=== PATIENT | male | born 1985 | race Two or more races ===

== ENCOUNTER 2022-06-04 18:00 | Emergency (ER) | payer OTHER ==
[2022-06-04 18:32] VITALS: BP 128/75; PULSE 98; RESP 18; TEMP 98.7; BMI 29.0
[2022-06-04] MEDS ORDERED: MAG HYDROX/AL HYDROX/SIMETH 30 ML UNIT-DOSE CUP PO ONE (19:36)
[2022-06-04] MEDS ORDERED: ACETAMINOPHEN 1000 MG/100 ML BAG IVPB ONE (19:37)
[2022-06-04] MEDS ORDERED: FAMOTIDINE 20 MG/50 ML IVPB 20 MG/50 ML MG IVPB ONE ×2 (19:37→19:55)
[2022-06-04] MEDS ORDERED: PANTOPRAZOLE SODIUM 40 MG VIAL IVPUSH ONE (19:37)
[2022-06-04] MEDS ORDERED: SODIUM CHLORIDE 0.9% 500 ML INFUS.BAG IV ONE (19:37)
[2022-06-04] MEDS ORDERED: ACETAMINOPHEN INJECTION 100 ML IVPB ONE (19:55)
[2022-06-04] MEDS ORDERED: PANTOPRAZOLE SODIUM 40 MG VIAL ONE (19:55)
[2022-06-04] MEDS ORDERED: MAG HYDROX/AL HYDROX/SIMETH 30 ML UNIT-DOSE CUP ONE (19:55)
== END 2022-06-04 22:30 | disposition home or self-care (01) ==
LOC: JER 18:00
PROC: 3E033GC Introduction of Other Therapeutic Substance into Peripheral Vein, Percutaneous Approach (ICD-10-PCS; principal; 2022-06-04)
DX: K29.00 Acute gastritis without bleeding (principal)
CPT/HCPCS: 99284-25

== ENCOUNTER 2022-06-08 11:58 | Inpatient (IN) | payer OTHER ==
[2022-06-08] MEDS ORDERED: ACETAMINOPHEN 1000 MG/100 ML BAG IVPB ONE (13:50)
[2022-06-08] MEDS ORDERED: FAMOTIDINE 20 MG/50 ML IVPB 20 MG/50 ML MG IVPB ONE ×2 (13:50→14:57)
[2022-06-08] MEDS ORDERED: SODIUM CHLORIDE 0.9% 500 ML INFUS.BAG IV ONE (13:50)
[2022-06-08] MEDS ORDERED: MAG HYDROX/AL HYDROX/SIMETH 30 ML UNIT-DOSE CUP PO ONE (13:50)
[2022-06-08] MEDS ORDERED: MAG HYDROX/AL HYDROX/SIMETH 30 ML UNIT-DOSE CUP ONE ×2 (14:57→14:58)
[2022-06-08] MEDS ORDERED: ACETAMINOPHEN INJECTION 100 ML IVPB ONE (14:57)
[2022-06-08 15:28] LABS: BASO % 0.3 % (0-2.0); EOS % 0.2 % (0-4.5); HEMATOCRIT 39.2 % (35.4-49); HEMOGLOBIN 13.4 GM/dL (11.7-16.9); LYMPH % 8.1 % (8-40); MCHC 34.2 g/dl (32.0-35.9); MEAN CELL VOLUME 90.7 fl (80-96); MEAN PLT VOLUME 6.7 fl (7.5-11.1); MONO % 15.8 % (3.8-10.2); NEUT % 75.6 % (42.8-82.8); PLATELET COUNT 451 10^3/uL (134-434); RBC 4.32 M/mm3 (4.00-5.60); RDW 14.1 % (11.9-15.9); WHITE BLOOD COUNT 18.8 K/mm3 (4.0-10.0)
[2022-06-08 15:51] LABS: CALCIUM 9.1 mg/dL (8.5-10.1)
[2022-06-08 15:52] LABS: ALBUMIN 3.4 g/dl (3.4-5.0); BLOOD UREA NITROGEN 14.9 mg/dL (7-18)
[2022-06-08 15:55] LABS: CREATININE 0.7 mg/dL (0.55-1.3)
[2022-06-08 15:56] LABS: BILIRUBIN,TOTAL 0.8 mg/dL (0.2-1); TOT PROT 7.9 g/dl (6.4-8.2)
[2022-06-08] MEDS ORDERED: morphine CARPU-JECT 4 MG/1 ML DISP.SYRIN IVPUSH ONE (18:33)
[2022-06-08] MEDS ORDERED: PIPERACILLIN/TAZOB 3.375 GM 3.375 GM in DEXTROSE 5%-WATER - 50 ML IVPB ONE (19:12)
[2022-06-08] MEDS ORDERED: morphine SULFATE 4 MG/ML VIAL ONE (19:47)
[2022-06-08 21:25] LABS: URINE APPEARANCE CLEAR; URINE BILIRUBIN NEGATIVE (NEGATIVE); URINE COLOR YELLOW; URINE GLUCOSE (UA) NEGATIVE (NEGATIVE); URINE KETONE 1+ (NEGATIVE); URINE LEUK ESTERASE NEGATIVE (NEGATIVE); URINE NITRITE NEGATIVE (NEGATIVE); URINE PROTEIN NEGATIVE (NEGATIVE)
[2022-06-08] MEDS ORDERED: PIPERACILLIN/TAZOB 3.375 GM 3.375 GM/50 ML BAG IVPB ONE (21:28)
[2022-06-08] MEDS ORDERED: HYDROmorphone HCl 2 MG/ML VIAL IVPUSH STA (23:26)
[2022-06-08] MEDS ORDERED: HYDROmorphone HCl 2 MG/ML VIAL ONE (23:38)
[2022-06-09] MEDS ORDERED: LORazepam 1 MG TABLET PO PRN (00:24)
[2022-06-09] MEDS: SODIUM CHLORIDE 1,000 ML IV SCH ×2 (01:04→14:44)
[2022-06-09 02:17] VITALS: BMI 30.9
[2022-06-09] MEDS ORDERED: PIPERACILLIN/TAZOB 3.375 GM 3.375 GM in DEXTROSE 5%-WATER - 50 ML IVPB SCH (05:00)
[2022-06-09] MEDS: oxyCODONE HCL 5 MG TABLET PO PRN ×3 (05:40→20:48)
[2022-06-09] MEDS: PIPERACILLIN/TAZOB 3.375 GM 3.375 GM in DEXTROSE 5%-WATER - 50 ML IVPB SCH ×3 (06:26→18:32)
[2022-06-09] MEDS ORDERED: ONDANSETRON 4 MG/2 ML VIAL IM PRN (06:42)
[2022-06-09] MEDS: NICOTINE 7 MG/24 HOURS TOPICAL PATCH TD SCH (10:33)
[2022-06-09] MEDS: ENOXAPARIN NA (PORCINE) 40 MG/0.4 ML DISP.SYRIN SQ SCH (10:34)
[2022-06-09] MEDS: THIAMINE HCL 100 MG TABLET (FP) PO SCH (10:35)
[2022-06-09] MEDS: FOLIC ACID 1 MG TABLET (FP) PO SCH (10:35)
[2022-06-09 11:00] LABS: BASO % 0.2 % (0-2.0); EOS % 0.2 % (0-4.5); HEMOGLOBIN 12.8 GM/dL (11.7-16.9); LYMPH % 9.5 % (8-40); MCH 31.3 pg (25.7-33.7); MCHC 34.5 g/dl (32.0-35.9); MEAN CELL VOLUME 90.8 fl (80-96); MEAN PLT VOLUME 6.7 fl (7.5-11.1); MONO % 15.3 % (3.8-10.2); NEUT % 74.8 % (42.8-82.8); PLATELET COUNT 460 10^3/uL (134-434); RBC 4.08 M/mm3 (4.00-5.60); RDW 14.6 % (11.9-15.9)
[2022-06-09 11:17] LABS: BLOOD UREA NITROGEN 10.1 mg/dL (7-18); CALCIUM 8.6 mg/dL (8.5-10.1); MAGNESIUM 2.5 mg/dL (1.8-2.4)
[2022-06-09 11:21] LABS: CREATININE 0.5 mg/dL (0.55-1.3)
[2022-06-09 11:22] LABS: BILIRUBIN,TOTAL 0.9 mg/dL (0.2-1); TOT PROT 6.8 g/dl (6.4-8.2)
[2022-06-10] MEDS: SODIUM CHLORIDE 1,000 ML IV SCH (00:15)
[2022-06-10] MEDS: PIPERACILLIN/TAZOB 3.375 GM 3.375 GM in DEXTROSE 5%-WATER - 50 ML IVPB SCH ×3 (01:32→18:02)
[2022-06-10] MEDS: THIAMINE HCL 100 MG TABLET (FP) PO SCH (09:36)
[2022-06-10] MEDS: oxyCODONE HCL 5 MG TABLET PO PRN ×2 (09:37→17:58)
[2022-06-10] MEDS: FOLIC ACID 1 MG TABLET (FP) PO SCH (09:38)
[2022-06-10] MEDS: ENOXAPARIN NA (PORCINE) 40 MG/0.4 ML DISP.SYRIN SQ SCH (09:38)
[2022-06-10] MEDS: NICOTINE 7 MG/24 HOURS TOPICAL PATCH TD SCH (09:38)
[2022-06-10 18:36] VITALS: RESP 18
[2022-06-10 20:22] LABS: BASO % 0.2 % (0-2.0); EOS % 0.7 % (0-4.5); HEMATOCRIT 36.4 % (35.4-49); HEMOGLOBIN 12.7 GM/dL (11.7-16.9); LYMPH % 10.9 % (8-40); MCH 31.5 pg (25.7-33.7); MCHC 34.9 g/dl (32.0-35.9); MEAN CELL VOLUME 90.3 fl (80-96); MEAN PLT VOLUME 6.5 fl (7.5-11.1); MONO % 13.1 % (3.8-10.2); NEUT % 75.1 % (42.8-82.8); PLATELET COUNT 471 10^3/uL (134-434); RBC 4.03 M/mm3 (4.00-5.60); RDW 14.4 % (11.9-15.9); WHITE BLOOD COUNT 13.7 K/mm3 (4.0-10.0)
[2022-06-10 20:40] LABS: ALBUMIN 2.9 g/dl (3.4-5.0); BLOOD UREA NITROGEN 11.8 mg/dL (7-18); CALCIUM 8.3 mg/dL (8.5-10.1); MAGNESIUM 2.4 mg/dL (1.8-2.4)
[2022-06-10 20:43] LABS: PHOSPHOROUS 3.9 mg/dL (2.5-4.9)
[2022-06-10 20:44] LABS: CREATININE 0.7 mg/dL (0.55-1.3)
[2022-06-10 20:45] LABS: BILIRUBIN,TOTAL 0.4 mg/dL (0.2-1); TOT PROT 6.8 g/dl (6.4-8.2)
[2022-06-10] MEDS ORDERED: SODIUM CHLORIDE 1,000 ML IV SCH (21:15)
[2022-06-11] MEDS ORDERED: LORazepam 0.5 MG TABLET PO PRN
[2022-06-11] MEDS: PIPERACILLIN/TAZOB 3.375 GM 3.375 GM in DEXTROSE 5%-WATER - 50 ML IVPB SCH ×3 (01:04→18:35)
[2022-06-11] MEDS: NICOTINE 7 MG/24 HOURS TOPICAL PATCH TD SCH ×2 (09:37→09:47)
[2022-06-11] MEDS: THIAMINE HCL 100 MG TABLET (FP) PO SCH (09:38)
[2022-06-11] MEDS: FOLIC ACID 1 MG TABLET (FP) PO SCH (09:38)
[2022-06-11] MEDS: ENOXAPARIN NA (PORCINE) 40 MG/0.4 ML DISP.SYRIN SQ SCH (09:38)
[2022-06-11 12:26] LABS: BASO % 0.4 % (0-2.0); EOS % 0.5 % (0-4.5); HEMATOCRIT 37.6 % (35.4-49); HEMOGLOBIN 12.6 GM/dL (11.7-16.9); LYMPH % 12.9 % (8-40); MCH 30.4 pg (25.7-33.7); MCHC 33.7 g/dl (32.0-35.9); MEAN CELL VOLUME 90.5 fl (80-96); MONO % 13.1 % (3.8-10.2); NEUT % 73.1 % (42.8-82.8); PLATELET COUNT 483 10^3/uL (134-434); RBC 4.15 M/mm3 (4.00-5.60); RDW 14.1 % (11.9-15.9); WHITE BLOOD COUNT 13.1 K/mm3 (4.0-10.0)
[2022-06-11 12:58] LABS: ALBUMIN 2.7 g/dl (3.4-5.0); CALCIUM 8.2 mg/dL (8.5-10.1)
[2022-06-11 12:59] LABS: BLOOD UREA NITROGEN 9.4 mg/dL (7-18); MAGNESIUM 2.4 mg/dL (1.8-2.4)
[2022-06-11 13:01] LABS: CREATININE 0.6 mg/dL (0.55-1.3); PHOSPHOROUS 3.7 mg/dL (2.5-4.9)
[2022-06-11 13:02] LABS: TOT PROT 6.4 g/dl (6.4-8.2)
[2022-06-11 13:03] LABS: BILIRUBIN,TOTAL 0.3 mg/dL (0.2-1)
[2022-06-11] MEDS: oxyCODONE HCL 5 MG TABLET PO PRN (14:03)
[2022-06-12] MEDS: PIPERACILLIN/TAZOB 3.375 GM 3.375 GM in DEXTROSE 5%-WATER - 50 ML IVPB SCH ×3 (01:08→18:25)
[2022-06-12] MEDS: FOLIC ACID 1 MG TABLET (FP) PO SCH (09:06)
[2022-06-12] MEDS: THIAMINE HCL 100 MG TABLET (FP) PO SCH (09:06)
[2022-06-12] MEDS: oxyCODONE HCL 5 MG TABLET PO PRN (09:06)
[2022-06-12] MEDS: ENOXAPARIN NA (PORCINE) 40 MG/0.4 ML DISP.SYRIN SQ SCH (09:07)
[2022-06-12] MEDS: NICOTINE 7 MG/24 HOURS TOPICAL PATCH TD SCH (09:21)
[2022-06-12 12:45] LABS: HEMATOCRIT 39.2 % (35.4-49); HEMOGLOBIN 13.5 GM/dL (11.7-16.9); MCH 30.9 pg (25.7-33.7); MCHC 34.3 g/dl (32.0-35.9); MEAN CELL VOLUME 90.1 fl (80-96); MEAN PLT VOLUME 6.6 fl (7.5-11.1); PLATELET COUNT 561 10^3/uL (134-434); RBC 4.35 M/mm3 (4.00-5.60); RDW 14.3 % (11.9-15.9); WHITE BLOOD COUNT 12.3 K/mm3 (4.0-10.0)
[2022-06-13] MEDS: PIPERACILLIN/TAZOB 3.375 GM 3.375 GM in DEXTROSE 5%-WATER - 50 ML IVPB SCH ×2 (01:02→10:18)
[2022-06-13] MEDS: ENOXAPARIN NA (PORCINE) 40 MG/0.4 ML DISP.SYRIN SQ SCH (10:18)
[2022-06-13] MEDS: NICOTINE 7 MG/24 HOURS TOPICAL PATCH TD SCH (10:19)
[2022-06-13] MEDS: THIAMINE HCL 100 MG TABLET (FP) PO SCH (10:19)
[2022-06-13] MEDS: FOLIC ACID 1 MG TABLET (FP) PO SCH (10:19)
[2022-06-13] MEDS: oxyCODONE HCL 5 MG TABLET PO PRN (10:32)
[2022-06-13 10:35] LABS: BASO % 0.3 % (0-2.0); EOS % 0.8 % (0-4.5); HEMATOCRIT 42.8 % (35.4-49); HEMOGLOBIN 14.3 GM/dL (11.7-16.9); LYMPH % 22.9 % (8-40); MCH 30.3 pg (25.7-33.7); MCHC 33.3 g/dl (32.0-35.9); MEAN PLT VOLUME 6.9 fl (7.5-11.1); MONO % 6.5 % (3.8-10.2); NEUT % 69.5 % (42.8-82.8); PLATELET COUNT 632 10^3/uL (134-434); RBC 4.71 M/mm3 (4.00-5.60); RDW 14.7 % (11.9-15.9); WHITE BLOOD COUNT 12.2 K/mm3 (4.0-10.0)
[2022-06-13 10:36] LABS: BLOOD UREA NITROGEN 14.6 mg/dL (7-18); CALCIUM 9.2 mg/dL (8.5-10.1); MAGNESIUM 2.8 mg/dL (1.8-2.4)
[2022-06-13 10:39] LABS: CREATININE 0.7 mg/dL (0.55-1.3)
[2022-06-13 10:42] LABS: BILIRUBIN,TOTAL 0.3 mg/dL (0.2-1)
[2022-06-13 10:43] LABS: ALBUMIN 3.3 g/dl (3.4-5.0)
[2022-06-13 13:48] VITALS: BP 106/60; PULSE 74; TEMP 98.4
== END 2022-06-13 15:50 | disposition home or self-care (01) | DRG 246 ==
LOC: JER 11:58 → JERBED 18:42 → J5S 06-09 00:14
PROVIDERS: ADMIT Internal Medicine; ATTEND Nurse Practitioner Family
DX: K55.069 Acute infarction of intestine, part and extent unspecified (principal); K52.9 Noninfective gastroenteritis and colitis, unspecified; R74.01 Elevation of levels of liver transaminase levels; F17.210 Nicotine dependence, cigarettes, uncomplicated; F10.10 Alcohol abuse, uncomplicated; D72.829 Elevated white blood cell count, unspecified; R11.2 Nausea with vomiting, unspecified; R10.13 Epigastric pain
CPT/HCPCS: 36415; 74177-TC; 76705-TC; 80053; 81003; 83605; 83690; 83735; 83993; 84100; 85025; 85027; 86705; 86707; 86708; 87040; 87045; 87046; 87086; 87205; 87209; 87324; 87350; 87449; 87517; 87522; 93005; 93010; 99285-25; C9803-CS; Q9967; U0003; U0005

== ENCOUNTER 2022-06-22 10:00 | Inpatient (IN) | payer OTHER ==
[2022-06-22] MEDS ORDERED: morphine CARPU-JECT 4 MG/1 ML DISP.SYRIN IVPUSH ONE ×3 (10:53→15:10)
[2022-06-22] MEDS ORDERED: morphine SULFATE 4 MG/ML VIAL ONE ×2 (11:25→13:13)
[2022-06-22] MEDS ORDERED: SODIUM CHLORIDE 0.9% 500 ML INFUS.BAG IV ONE (11:30)
[2022-06-22 11:57] LABS: HEMATOCRIT 40.6 % (35.4-49); HEMOGLOBIN 13.5 GM/dL (11.7-16.9); MCH 29.7 pg (25.7-33.7); MCHC 33.2 g/dl (32.0-35.9); MEAN CELL VOLUME 89.5 fl (80-96); MEAN PLT VOLUME 7.1 fl (7.5-11.1); PLATELET COUNT 639 10^3/uL (134-434); RBC 4.53 M/mm3 (4.00-5.60); RDW 14.5 % (11.9-15.9); WHITE BLOOD COUNT 20.5 K/mm3 (4.0-10.0)
[2022-06-22 12:06] LABS: INR 1.43 (0.83-1.09); PROTHROMBIN TIME (PATIENT) 16.5 SEC (9.7-13.0)
[2022-06-22 12:08] LABS: ACTIVATED PTT 34.8 SECONDS (25.2-36.5)
[2022-06-22 12:25] LABS: CALCIUM 9.3 mg/dL (8.5-10.1)
[2022-06-22 12:26] LABS: ALBUMIN 3.5 g/dl (3.4-5.0); MAGNESIUM 2.3 mg/dL (1.8-2.4)
[2022-06-22 12:29] LABS: CREATININE 0.8 mg/dL (0.55-1.3)
[2022-06-22 12:30] LABS: BILIRUBIN,TOTAL 0.8 mg/dL (0.2-1); TOT PROT 7.6 g/dl (6.4-8.2)
[2022-06-22] MEDS ORDERED: PIPERACILLIN/TAZOB 4.5 GM 4.5 GM in DEXTROSE 5%-WATER 100 ML IVPB ONE (13:03)
[2022-06-22 13:18] LABS: PH,URINE 5.5 (5.0-8.0); URINE APPEARANCE CLEAR; URINE BILIRUBIN NEGATIVE (NEGATIVE); URINE COLOR YELLOW; URINE GLUCOSE (UA) NEGATIVE (NEGATIVE); URINE KETONE TRACE (NEGATIVE); URINE LEUK ESTERASE NEGATIVE (NEGATIVE); URINE NITRITE NEGATIVE (NEGATIVE); URINE PROTEIN NEGATIVE (NEGATIVE); URINE UROBILINOGEN 0.2 mg/dL (0.2-1.0)
[2022-06-22] MEDS ORDERED: PIPERACILLIN/TAZOB 4.5 GM 4.5 GM/100 ML BAG IVPB ONE (13:23)
[2022-06-22] MEDS ORDERED: ACETAMINOPHEN 1000 MG/100 ML BAG IVPB ONE (14:03)
[2022-06-22] MEDS ORDERED: ACETAMINOPHEN INJECTION 100 ML IVPB ONE ×2 (14:13→21:00)
[2022-06-22] MEDS ORDERED: ONDANSETRON 4 MG/2 ML VIAL IVPUSH PRN (16:52)
[2022-06-22] MEDS ORDERED: ACETAMINOPHEN 1000 MG/100 ML BAG IVPB PRN (16:54)
[2022-06-22] MEDS ORDERED: LACTATED RINGERS SOLUTION 1,000 ML IV SCH (17:00)
[2022-06-22] MEDS ORDERED: KETOROLAC TROMETHAMINE 15 MG/ML VIAL IVPUSH PRN (17:35)
[2022-06-22] MEDS ORDERED: PIPERACILLIN/TAZOB 3.375 GM 3.375 GM/50 ML BAG IVPB ONE (21:01)
[2022-06-22] MEDS: ACETAMINOPHEN 1000 MG/100 ML BAG IVPB PRN (21:10)
[2022-06-22] MEDS: PIPERACILLIN/TAZOB 3.375 GM 3.375 GM in DEXTROSE 5%-WATER - 50 ML IVPB SCH (21:10)
[2022-06-23] MEDS ORDERED: PIPERACILLIN/TAZOB 3.375 GM 3.375 GM/50 ML BAG IVPB ONE ×2 (03:09→09:38)
[2022-06-23] MEDS: PIPERACILLIN/TAZOB 3.375 GM 3.375 GM in DEXTROSE 5%-WATER - 50 ML IVPB SCH ×3 (03:21→21:19)
[2022-06-23 07:12] LABS: HEMATOCRIT 35.4 % (35.4-49); HEMOGLOBIN 12.1 GM/dL (11.7-16.9); MCH 30.6 pg (25.7-33.7); MCHC 34.2 g/dl (32.0-35.9); MEAN CELL VOLUME 89.6 fl (80-96); PLATELET COUNT 550 10^3/uL (134-434); RBC 3.95 M/mm3 (4.00-5.60); RDW 14.1 % (11.9-15.9); WHITE BLOOD COUNT 20.1 K/mm3 (4.0-10.0)
[2022-06-23 07:16] LABS: CHLORIDE 102 mmol/L (98-107); SODIUM 138 mmol/L (136-145)
[2022-06-23 07:20] LABS: ANION GAP 9 MMOL/L (8-16); BLOOD UREA NITROGEN 4.9 mg/dL (7-18); CALCIUM 8.8 mg/dL (8.5-10.1); CO2 26 mmol/L (21-32); GLUCOSE,RANDOM 93 mg/dL (74-106); MAGNESIUM 2.1 mg/dL (1.8-2.4)
[2022-06-23 07:23] LABS: CREATININE 0.6 mg/dL (0.55-1.3); PHOSPHOROUS 3.9 mg/dL (2.5-4.9)
[2022-06-23] MEDS ORDERED: morphine SULFATE 4 MG/ML VIAL IVPUSH PRN ×2 (10:24→17:23)
[2022-06-23] MEDS ORDERED: ACETAMINOPHEN INJECTION 100 ML IVPB ONE (10:28)
[2022-06-23] MEDS ORDERED: morphine SULFATE 4 MG/ML VIAL ONE ×2 (10:37→12:28)
[2022-06-23] MEDS: ACETAMINOPHEN 1000 MG/100 ML BAG IVPB PRN (10:42)
[2022-06-23] MEDS ORDERED: MIDAZOLAM HCL 2 MG/2 ML SINGLE DOSE VIAL ONE (13:04)
[2022-06-23] MEDS ORDERED: PROPOFOL 20 ML ONE (13:04)
[2022-06-23] MEDS ORDERED: ROCURONIUM BROMIDE 50 MG/5 ML SYRINGE ONE ×2 (13:14→14:28)
[2022-06-23] MEDS ORDERED: LIDOCAINE HCL 2% 100 MG/5 ML DISP.SYRIN ONE (13:16)
[2022-06-23] MEDS ORDERED: DEXAMETHASONE SOD PHOSPHATE 4 MG/1 ML VIAL ONE (13:18)
[2022-06-23] MEDS ORDERED: BUPIVACAINE HCL/PF 0.25% (2.5MG/ML) 10 ML VIAL ONE (14:04)
[2022-06-23] MEDS ORDERED: PIPERACILLIN/TAZOBACTAM 3.375 GM VIAL IVPB ONE (14:16)
[2022-06-23] MEDS ORDERED: HYDROmorphone HCl 2 MG/ML VIAL ONE (14:55)
[2022-06-23] MEDS ORDERED: ONDANSETRON 4 MG/2 ML VIAL ONE (15:08)
[2022-06-23] MEDS ORDERED: NEOSTIGMINE METHYLSULFATE 0.5 MG/ML - 10 ML MDV ONE (15:47)
[2022-06-23] MEDS ORDERED: KETOROLAC TROMETHAMINE 30 MG/1 ML VIAL ONE (16:05)
[2022-06-23] MEDS ORDERED: ACETAMINOPHEN 1000 MG/100 ML BAG IVPB SCH (16:45)
[2022-06-23] MEDS ORDERED: ONDANSETRON 4 MG/2 ML VIAL IVPUSH PRN ×2 (16:52→17:23)
[2022-06-23] MEDS ORDERED: PROMETHAZINE HCL 25 MG/1 ML VIAL IVPB PRN (16:53)
[2022-06-23] MEDS ORDERED: HYDROmorphone *PCA* 10MG/50ML DISP.SYRIN ONE (17:17)
[2022-06-23] MEDS ORDERED: KETOROLAC TROMETHAMINE 15 MG/ML VIAL IVPUSH PRN (17:23)
[2022-06-23] MEDS ORDERED: LACTATED RINGERS SOLUTION 1,000 ML IV SCH (17:23)
[2022-06-23] MEDS: HYDROmorphone *PCA* 10MG/50ML DISP.SYRIN PCA SCH (18:15)
[2022-06-23] MEDS: LACTATED RINGERS SOLUTION 1,000 ML IV SCH (20:40)
[2022-06-23] MEDS ORDERED: PIPERACILLIN/TAZOB 3.375 GM 3.375 GM in DEXTROSE 5%-WATER - 50 ML IVPB SCH (21:00)
[2022-06-23] MEDS: ACETAMINOPHEN 1000 MG/100 ML BAG IVPB SCH (21:24)
[2022-06-24] MEDS: ACETAMINOPHEN 1000 MG/100 ML BAG IVPB SCH ×4 (02:17→18:42)
[2022-06-24] MEDS: LACTATED RINGERS SOLUTION 1,000 ML IV SCH ×4 (03:18→18:06)
[2022-06-24 07:00] LABS: HEMOGLOBIN 11.6 GM/dL (11.7-16.9); MCH 29.9 pg (25.7-33.7); MCHC 33.1 g/dl (32.0-35.9); MEAN CELL VOLUME 90.5 fl (80-96); MEAN PLT VOLUME 7.5 fl (7.5-11.1); PLATELET COUNT 532 10^3/uL (134-434); RBC 3.87 M/mm3 (4.00-5.60); RDW 14.2 % (11.9-15.9); WHITE BLOOD COUNT 17.3 K/mm3 (4.0-10.0)
[2022-06-24 07:51] LABS: CALCIUM 8.7 mg/dL (8.5-10.1)
[2022-06-24 07:52] LABS: BLOOD UREA NITROGEN 6.6 mg/dL (7-18); MAGNESIUM 2.1 mg/dL (1.8-2.4)
[2022-06-24 07:55] LABS: CREATININE 0.5 mg/dL (0.55-1.3); PHOSPHOROUS 4.2 mg/dL (2.5-4.9)
[2022-06-24 07:56] LABS: BILIRUBIN,TOTAL 0.8 mg/dL (0.2-1)
[2022-06-24 07:59] LABS: ALBUMIN 2.5 g/dl (3.4-5.0)
[2022-06-24 09:58] LABS: ANISOCYTOSIS 0; HELMET CELLS 0; HOWELL-JOLLY BODIES 0; MACROCYTOSIS 0; OVALOCYTE 0; ROULEAU 0; SICKELED CELLS 0; TARGET CELLS 0; TEAR DROP CELLS 0; TOXIC GRANULATION 0
[2022-06-24] MEDS: ENOXAPARIN NA (PORCINE) 40 MG/0.4 ML DISP.SYRIN SQ SCH (10:26)
[2022-06-24 14:52] VITALS: BMI 31.1
[2022-06-24] MEDS: PIPERACILLIN/TAZOB 3.375 GM 3.375 GM in DEXTROSE 5%-WATER - 50 ML IVPB SCH ×4 (15:03→22:20)
[2022-06-25] MEDS: ACETAMINOPHEN 1000 MG/100 ML BAG IVPB SCH ×4 (01:09→18:50)
[2022-06-25] MEDS: PIPERACILLIN/TAZOB 3.375 GM 3.375 GM in DEXTROSE 5%-WATER - 50 ML IVPB SCH ×3 (01:59→17:59)
[2022-06-25 07:07] LABS: BASO % 0.1 % (0-2.0); EOS % 0.1 % (0-4.5); HEMATOCRIT 30.4 % (35.4-49); HEMOGLOBIN 10.2 GM/dL (11.7-16.9); LYMPH % 15.5 % (8-40); MCH 30.3 pg (25.7-33.7); MCHC 33.5 g/dl (32.0-35.9); MEAN CELL VOLUME 90.4 fl (80-96); MEAN PLT VOLUME 7.4 fl (7.5-11.1); MONO % 8.8 % (3.8-10.2); NEUT % 75.5 % (42.8-82.8); PLATELET COUNT 515 10^3/uL (134-434); RBC 3.36 M/mm3 (4.00-5.60); RDW 14.2 % (11.9-15.9); WHITE BLOOD COUNT 11.7 K/mm3 (4.0-10.0)
[2022-06-25] MEDS: HYDROmorphone *PCA* 10MG/50ML DISP.SYRIN PCA SCH (07:24)
[2022-06-25 07:52] LABS: CHOLESTEROL 158 mg/dL (50-200)
[2022-06-25 07:56] LABS: TRIGLYCERIDES 131 mg/dL (0-150)
[2022-06-25 07:57] LABS: LDL CHOLESTEROL (ONLY SJRH) 105 mg/dL (5-100)
[2022-06-25 08:02] LABS: ALBUMIN 2.4 g/dl (3.4-5.0); CALCIUM 8.5 mg/dL (8.5-10.1)
[2022-06-25 08:03] LABS: BLOOD UREA NITROGEN 7.9 mg/dL (7-18); MAGNESIUM 2.4 mg/dL (1.8-2.4)
[2022-06-25 08:06] LABS: CREATININE 0.5 mg/dL (0.55-1.3); PHOSPHOROUS 3.1 mg/dL (2.5-4.9)
[2022-06-25 08:07] LABS: BILIRUBIN,TOTAL 0.9 mg/dL (0.2-1); TOT PROT 5.7 g/dl (6.4-8.2)
[2022-06-25 09:02] LABS: HDL CHOLESTEROL 36 mg/dL (40-60)
[2022-06-25] MEDS: ENOXAPARIN NA (PORCINE) 40 MG/0.4 ML DISP.SYRIN SQ SCH (09:36)
[2022-06-25] MEDS ORDERED: LACTATED RINGERS SOLUTION 1,000 ML IV SCH (10:55)
[2022-06-25] MEDS ORDERED: oxyCODONE HCL 5 MG TABLET PO PRN (10:57)
[2022-06-25] MEDS: morphine SULFATE 4 MG/ML VIAL IVPUSH PRN ×2 (15:59→23:37)
[2022-06-26] MEDS: ACETAMINOPHEN 1000 MG/100 ML BAG IVPB SCH ×4 (01:30→21:18)
[2022-06-26] MEDS: PIPERACILLIN/TAZOB 3.375 GM 3.375 GM in DEXTROSE 5%-WATER - 50 ML IVPB SCH ×3 (01:31→17:09)
[2022-06-26 07:34] LABS: BASO % 0.3 % (0-2.0); EOS % 0.6 % (0-4.5); HEMATOCRIT 34.8 % (35.4-49); HEMOGLOBIN 11.5 GM/dL (11.7-16.9); LYMPH % 23.8 % (8-40); MCH 30.1 pg (25.7-33.7); MCHC 33.1 g/dl (32.0-35.9); MEAN CELL VOLUME 91.1 fl (80-96); NEUT % 64.3 % (42.8-82.8); PLATELET COUNT 573 10^3/uL (134-434); RBC 3.82 M/mm3 (4.00-5.60); RDW 14.3 % (11.9-15.9); WHITE BLOOD COUNT 8.1 K/mm3 (4.0-10.0)
[2022-06-26] MEDS ORDERED: ONDANSETRON 4 MG/2 ML VIAL IVPUSH PRN (07:44)
[2022-06-26] MEDS ORDERED: PROMETHAZINE HCL 25 MG/1 ML VIAL IVPB PRN (07:44)
[2022-06-26] MEDS ORDERED: LACTATED RINGERS SOLUTION 1,000 ML IV SCH (07:44)
[2022-06-26 07:59] LABS: CALCIUM 8.9 mg/dL (8.5-10.1)
[2022-06-26 08:01] LABS: ALBUMIN 2.5 g/dl (3.4-5.0); BLOOD UREA NITROGEN 6.3 mg/dL (7-18); MAGNESIUM 2.5 mg/dL (1.8-2.4)
[2022-06-26 08:03] LABS: CREATININE 0.5 mg/dL (0.55-1.3); PHOSPHOROUS 4.2 mg/dL (2.5-4.9)
[2022-06-26 08:05] LABS: BILIRUBIN,TOTAL 0.5 mg/dL (0.2-1); TOT PROT 6.1 g/dl (6.4-8.2)
[2022-06-26] MEDS: ENOXAPARIN NA (PORCINE) 40 MG/0.4 ML DISP.SYRIN SQ SCH (09:25)
[2022-06-26] MEDS: morphine SULFATE 4 MG/ML VIAL IVPUSH PRN ×2 (09:25→12:34)
[2022-06-26] MEDS: oxyCODONE HCL 5 MG TABLET PO PRN (15:22)
[2022-06-27] MEDS ORDERED: PIPERACILLIN/TAZOBACTAM 3.375 GM VIAL IVPB ONE (01:09)
[2022-06-27] MEDS: PIPERACILLIN/TAZOB 3.375 GM 3.375 GM in DEXTROSE 5%-WATER - 50 ML IVPB SCH ×2 (01:21→11:17)
[2022-06-27] MEDS: ACETAMINOPHEN 1000 MG/100 ML BAG IVPB SCH ×4 (02:16→21:43)
[2022-06-27 09:08] LABS: BASO % 0.3 % (0-2.0); EOS % 2.1 % (0-4.5); HEMATOCRIT 35.6 % (35.4-49); HEMOGLOBIN 11.8 GM/dL (11.7-16.9); MCH 29.9 pg (25.7-33.7); MCHC 33.2 g/dl (32.0-35.9); MEAN CELL VOLUME 90.2 fl (80-96); MEAN PLT VOLUME 6.9 fl (7.5-11.1); MONO % 9.2 % (3.8-10.2); NEUT % 63.4 % (42.8-82.8); PLATELET COUNT 561 10^3/uL (134-434); RBC 3.94 M/mm3 (4.00-5.60); RDW 14.3 % (11.9-15.9); WHITE BLOOD COUNT 8.1 K/mm3 (4.0-10.0)
[2022-06-27 09:30] LABS: ALBUMIN 2.6 g/dl (3.4-5.0); BLOOD UREA NITROGEN 9.5 mg/dL (7-18)
[2022-06-27 09:33] LABS: CREATININE 0.5 mg/dL (0.55-1.3); PHOSPHOROUS 4.2 mg/dL (2.5-4.9)
[2022-06-27 09:34] LABS: BILIRUBIN,TOTAL 0.4 mg/dL (0.2-1)
[2022-06-27 09:36] LABS: TOT PROT 6.3 g/dl (6.4-8.2)
[2022-06-27] MEDS: ENOXAPARIN NA (PORCINE) 40 MG/0.4 ML DISP.SYRIN SQ SCH (11:22)
[2022-06-27] MEDS: oxyCODONE HCL 5 MG TABLET PO PRN (17:06)
[2022-06-28] MEDS: ACETAMINOPHEN 1000 MG/100 ML BAG IVPB SCH ×4 (02:07→21:39)
[2022-06-28 08:31] LABS: BASO % 0.5 % (0-2.0); HEMOGLOBIN 11.8 GM/dL (11.7-16.9); LYMPH % 21.5 % (8-40); MCH 29.7 pg (25.7-33.7); MCHC 32.9 g/dl (32.0-35.9); MEAN CELL VOLUME 90.1 fl (80-96); MEAN PLT VOLUME 6.9 fl (7.5-11.1); MONO % 8.7 % (3.8-10.2); NEUT % 65.3 % (42.8-82.8); PLATELET COUNT 567 10^3/uL (134-434); RBC 3.99 M/mm3 (4.00-5.60); RDW 14.4 % (11.9-15.9); WHITE BLOOD COUNT 9.8 K/mm3 (4.0-10.0)
[2022-06-28 08:53] LABS: CALCIUM 9.1 mg/dL (8.5-10.1)
[2022-06-28 08:54] LABS: ALBUMIN 2.8 g/dl (3.4-5.0); BLOOD UREA NITROGEN 13.4 mg/dL (7-18)
[2022-06-28 08:57] LABS: CREATININE 0.6 mg/dL (0.55-1.3); PHOSPHOROUS 3.8 mg/dL (2.5-4.9)
[2022-06-28 08:58] LABS: BILIRUBIN,TOTAL 0.5 mg/dL (0.2-1); TOT PROT 6.5 g/dl (6.4-8.2)
[2022-06-28] MEDS: ENOXAPARIN NA (PORCINE) 40 MG/0.4 ML DISP.SYRIN SQ SCH (09:02)
[2022-06-29] MEDS: ACETAMINOPHEN 1000 MG/100 ML BAG IVPB SCH ×2 (03:18→09:42)
[2022-06-29 08:55] LABS: BASO % 0.3 % (0-2.0); EOS % 4.1 % (0-4.5); HEMATOCRIT 33.9 % (35.4-49); HEMOGLOBIN 11.7 GM/dL (11.7-16.9); LYMPH % 19.5 % (8-40); MCH 30.9 pg (25.7-33.7); MCHC 34.5 g/dl (32.0-35.9); MEAN CELL VOLUME 89.5 fl (80-96); MEAN PLT VOLUME 6.3 fl (7.5-11.1); MONO % 7.6 % (3.8-10.2); NEUT % 68.5 % (42.8-82.8); PLATELET COUNT 528 10^3/uL (134-434); RBC 3.79 M/mm3 (4.00-5.60); RDW 14.1 % (11.9-15.9)
[2022-06-29 09:22] LABS: CALCIUM 8.9 mg/dL (8.5-10.1)
[2022-06-29 09:23] LABS: ALBUMIN 2.8 g/dl (3.4-5.0); BLOOD UREA NITROGEN 10.6 mg/dL (7-18)
[2022-06-29 09:26] LABS: CREATININE 0.4 mg/dL (0.55-1.3); PHOSPHOROUS 3.9 mg/dL (2.5-4.9)
[2022-06-29 09:27] LABS: BILIRUBIN,TOTAL 0.3 mg/dL (0.2-1)
[2022-06-29 09:29] LABS: TOT PROT 6.6 g/dl (6.4-8.2)
[2022-06-29] MEDS: ACETAMINOPHEN 500 MG TABLET (FP) PO SCH ×2 (11:09→14:57)
[2022-06-29] MEDS: ENOXAPARIN NA (PORCINE) 40 MG/0.4 ML DISP.SYRIN SQ SCH (11:09)
[2022-06-29] MEDS ORDERED: oxyCODONE HCL 5 MG TABLET PO PRN (16:53)
[2022-06-29] MEDS ORDERED: ACETAMINOPHEN 500 MG TABLET (FP) PO PRN (16:53)
[2022-06-30 06:30] VITALS: RESP 18
[2022-06-30 08:37] VITALS: BP 121/45; PULSE 74; TEMP 98.5
[2022-06-30] MEDS: ENOXAPARIN NA (PORCINE) 40 MG/0.4 ML DISP.SYRIN SQ SCH (09:30)
[2022-06-30 10:16] LABS: BASO % 0.4 % (0-2.0); HEMATOCRIT 34.5 % (35.4-49); HEMOGLOBIN 11.9 GM/dL (11.7-16.9); LYMPH % 16.3 % (8-40); MCH 30.8 pg (25.7-33.7); MCHC 34.4 g/dl (32.0-35.9); MEAN CELL VOLUME 89.3 fl (80-96); MEAN PLT VOLUME 6.3 fl (7.5-11.1); MONO % 6.6 % (3.8-10.2); NEUT % 73.7 % (42.8-82.8); PLATELET COUNT 533 10^3/uL (134-434); RBC 3.87 M/mm3 (4.00-5.60); RDW 14.4 % (11.9-15.9); WHITE BLOOD COUNT 10.6 K/mm3 (4.0-10.0)
[2022-06-30 10:41] LABS: CALCIUM 9.3 mg/dL (8.5-10.1)
[2022-06-30 10:42] LABS: BLOOD UREA NITROGEN 10.3 mg/dL (7-18)
[2022-06-30 10:44] LABS: PHOSPHOROUS 3.9 mg/dL (2.5-4.9)
[2022-06-30 10:45] LABS: CREATININE 0.5 mg/dL (0.55-1.3)
[2022-06-30 10:46] LABS: BILIRUBIN,TOTAL 0.4 mg/dL (0.2-1)
== END 2022-06-30 12:19 | disposition home or self-care (01) | DRG 221 ==
LOC: JER 10:00 → JERBED 15:22 → J2W 06-23 20:21 → J8W 06-26 07:04
PROVIDERS: ADMIT Internal Medicine; ATTEND Internal Medicine
PROC: 0DTU0ZZ Resection of Omentum, Open Approach (ICD-10-PCS; 2022-06-23)
PROC: 0DNF0ZZ Release Right Large Intestine, Open Approach (ICD-10-PCS; 2022-06-23)
PROC: 0DTF0ZZ Resection of Right Large Intestine, Open Approach (ICD-10-PCS; principal; 2022-06-23 12:30)
DX: K57.80 Diverticulitis of intestine, part unspecified, with perforation and abscess without bleeding (principal); K50.90 Crohn's disease, unspecified, without complications; D72.829 Elevated white blood cell count, unspecified; R10.31 Right lower quadrant pain; R19.8 Other specified symptoms and signs involving the digestive system and abdomen
CPT/HCPCS: 36415; 74019-TC-FY; 74174-TC; 80048; 80053; 80061; 81003; 82378; 83036; 83605; 83690; 83735; 84100; 85025; 85610; 85730; 86140; 86850; 86900; 86901; 87040; 87086; 88307-TC; 93005; 93010; 94760; 97116-GP; 97162-GP; 99285-25; C9803-CS; Q9967; U0003; U0005